=== PATIENT | male | born 1950 | race Caucasian/White ===

== ENCOUNTER 2016-09-23 21:22 | Emergency (ER) | payer MEDICARE, BC ==
[2016-09-23 21:41] VITALS: BP 118/73
--- NOTE | 2016-09-23 22:11 | EDM.PDOC ---
ED HPI GENERAL MEDICAL PROBLEM - General Chief Complaint: Lower Extremity Injury/Pain Stated Complaint: LEFT KNEE PAIN/KNEE SURGERY SUNDAY Time Seen by Provider: 09/23/16 22:00 Source of Information: Reports: Patient History Limitations: Reports: No Limitations - History of Present Illness INITIAL COMMENTS - FREE TEXT/NARRATIVE: 66 yo male who lives locally had a R knee replacement recently in [place]. He developed a water blister to the medial knee on the same knee he had surgery on. He called [place] and was told to come here for evaluation. No fever. Onset: Today Onset Date: 09/23/16 Duration: Hour(s): Location: Reports: Lower Extremity, Right Quality: Reports: Other (minimal itch.) Severity: Mild Improves with: Reports: None Worsens with: Reports: Other (? time) Context: Reports: Other (Recent R knee replacement.) Associated Symptoms: Reports: No Other Symptoms Treatments INTEGRATION TECHNICIAN: Reports: Other (see below) (none) Left Knee Pain Score (Numeric/FACES): 7 - Related Data Allergies Allergy/AdvReac Type Severity Reaction Status Date / Time erythromycin base Allergy Stomach Verified 08/20/14 08:07 [Erythromycin Base] Upset lisinopril AdvReac Cough Verified 08/20/14 08:07 Home Meds: Home Meds Aspirin [Valery Chewable] 325 mg PO DAILY 07/31/13 [History] Pravastatin Sodium [Pravastatin (Pravachol)] 40 mg PO DAILY 07/31/13 [History] Bisacodyl [Dulcolax] 5 mg PO BID PRN 09/23/16 [History] Metoprolol Succinate [Toprol XL 100mg] 100 mg PO DAILY 09/23/16 [History] Pantoprazole Sodium [Pantoprazole Sodium] 40 mg PO DAILY 09/23/16 [History] Polyethylene Glycol 3350 [MiraLAX] 17 gm PO DAILY 09/23/16 [History] Sucralfate [Sucralfate] 1 gm PO QID 09/23/16 [History] oxyCODONE HCl/Acetaminophen [oxyCODONE-Acetaminophen 5-325] 1 tab PO Q4H PRN [History] Past Medical History Cardiovascular History: Reports: High Cholesterol, Hypertension Musculoskeletal History: Reports: Other (See Below) Other Musculoskeletal History: bad knees Dermatologic History: Reports: Other (See Below) Other Dermatologic History: blister like formation near incision L knee - Past Surgical History Musculoskeletal Surgical History: Reports: Knee Replacement Other Musculoskeletal Surgeries/Procedures:: x 2. new L knee replacement Social & Family History - Tobacco Use Smoking Status *Q: Never Smoker Second Hand Smoke Exposure: No - Caffeine Use Caffeine Use: Reports: None - Alcohol Use Days Per Week of Alcohol Use: 0 - Recreational Drug Use Recreational Drug Use: No Review of Systems - Review of Systems Review Of Systems: See Below Constitutional: Reports: No Symptoms Musculoskeletal: Reports: No Symptoms Skin: Reports: Other (blister R knee) Neurological: Reports: No Symptoms ED EXAM, GENERAL - Physical Exam Exam: See Below Exam Limited By: No Limitations General Appearance: Alert, WD/WN, No Apparent Distress Extremities: Other (surgical scar R knee, clean, no sign of infection.) Neurological: Alert, Oriented, CN II-XII Intact Psychiatric: Normal Affect, Normal Mood Skin Exam: Warm, Dry, Intact, Normal Color, Other (There is a single large water blister to the medial ) Lymphatic: No Adenopathy Course - Vital Signs Last Recorded V/S: Last Vital Signs Temp 37.7 C 09/23/16 21:40 Pulse 90 09/23/16 21:40 Resp 18 09/23/16 21:40 BP 118/73 09/23/16 21:40 Pulse Ox 93 L 09/23/16 21:40 Departure - Departure Time of Disposition: 22:11 Disposition: Home, Self-Care 01 Condition: Good Clinical Impression: Vesicular eruption of skin - Discharge Information Referrals: Flakito Javed MD [Primary Care Provider] - Forms: ED Department Discharge Additional Instructions: Once blister pops you will need to keep that area clean to prevent infection. Recheck for fever. Keep your follow up appt as scheduled.
== END 2016-09-23 22:13 | disposition home or self-care (01) ==
LOC: JP.ED 21:22
DX: R23.8 Other skin changes (principal); Z79.899 Other long term (current) drug therapy; Z88.8 Allergy status to other drugs, medicaments and biological substances; Z79.82 Long term (current) use of aspirin; E78.00 Pure hypercholesterolemia, unspecified; I10 Essential (primary) hypertension; Z96.652 Presence of left artificial knee joint
CPT/HCPCS: 99282; 99283

== ENCOUNTER 2017-04-06 07:51 | Day surgery (SDC) | payer MEDICARE, BC ==
[2017-04-06] MEDS ORDERED: Lactated Ringers 1,000 ML IV SCH (08:30)
[2017-04-06] MEDS ORDERED: Propofol 200 MG/20 ML SDV ONE (09:18)
[2017-04-06] MEDS ORDERED: fentaNYL 100 MCG/2 ML SDV ONE (09:18)
[2017-04-06] MEDS ORDERED: Midazolam 1 MG/ML 2 ML SDV ONE (09:18)
[2017-04-06 11:02] VITALS: BP 136/80
--- NOTE | 2017-04-06 15:21 | OR ---
DATE OF PROCEDURE: 04/06/2017 PREOPERATIVE DIAGNOSIS: Colon cancer screening. POSTOPERATIVE DIAGNOSIS: Diverticulosis. PROCEDURE: Colonoscopy to the cecum. ANESTHESIA: IV anesthesia with monitored anesthesia care. INDICATION: This 66-year-old white male is referred for a colonoscopy for colon cancer screening. He says his last colonoscopic exam was done 11 years ago. I counseled him for the procedure including risks and alternatives, and he gave his informed consent to proceed. DESCRIPTION OF PROCEDURE: The patient was placed in the left lateral decubitus position. IV anesthesia was administered by the Anesthesia Service. Time-out was held. A rectal exam was performed, which was unremarkable. The flexible video Olympus colonoscope was introduced through his anus, up his rectum, and out his colon all the way to the cecum. En route, we saw a few scattered left-sided diverticula. There was no bleeding or inflammation associated with them. Once the cecum was reached, the scope was slowly withdrawn, examining the mucosa throughout. No additional mucosal abnormalities were noted. The scope was retroflexed in the rectum with the distal rectum appearing unremarkable. The scope was straightened and removed. He tolerated the procedure well. Omar Simmons MD /[id number] AKASH
== END 2017-04-06 10:50 | disposition home or self-care (01) ==
LOC: JP.SDS 07:51
PROVIDERS: ATTEND Surgery
DX: Z12.11 Encounter for screening for malignant neoplasm of colon (principal); K57.30 Diverticulosis of large intestine without perforation or abscess without bleeding
CPT/HCPCS: G0121; J2250; J2704; J3010; J7120

== ENCOUNTER 2017-07-24 15:02 | Emergency (ER) | payer MEDICARE, BC ==
[2017-07-24] MEDS ORDERED: Ibuprofen 600 MG Tab PO ONE (15:42)
[2017-07-24] MEDS ORDERED: Lactated Ringers 1,000 ML IV SCH (15:45)
--- NOTE | 2017-07-24 15:47 | EDM.PDOC ---
ED HPI GENERAL MEDICAL PROBLEM - General Chief Complaint: Fever Stated Complaint: COUGH / FEVER Time Seen by Provider: 07/24/17 15:37 Source of Information: Reports: Patient, Family, RN Notes Reviewed History Limitations: Reports: No Limitations - History of Present Illness INITIAL COMMENTS - FREE TEXT/NARRATIVE: 66-year-old gentleman presents to the emergency department day complaint of sore throat and fever, states is been ill for about 2 weeks has been evaluated by his primary care did do trial of azithromycin, states after completing the antibiotics he felt good for a day or 2 and then progressively has gotten worse with fever and sore throat he's also developed a cough and feels tightness in his chest when he coughs. Middle Chest Pain Score (Numeric/FACES): 9 - Related Data Allergies Allergy/AdvReac Type Severity Reaction Status Date / Time erythromycin base Allergy Stomach Verified 07/24/17 15:24 [Erythromycin Base] Upset lisinopril AdvReac Cough Verified 07/24/17 15:24 reglan Allergy Hallucinati Uncoded 07/24/17 15:24 ons Home Meds: Home Meds Aspirin [Valery Chewable] 81 mg PO DAILY 07/31/13 [History] Pravastatin Sodium [Pravastatin (Pravachol)] 40 mg PO DAILY 07/31/13 [History] Metoprolol Succinate [Toprol XL 100mg] 100 mg PO DAILY 09/23/16 [History] Pantoprazole Sodium 40 mg PO BID 09/23/16 [History] Sucralfate 1 gm PO QID 09/23/16 [History] Past Medical History HEENT History: Reports: Impaired Vision Cardiovascular History: Reports: High Cholesterol, Hypertension Gastrointestinal History: Reports: Colon Polyp, GERD Genitourinary History: Reports: BPH Musculoskeletal History: Reports: Back Pain, Chronic, Fracture, Osteoarthritis Other Musculoskeletal History: bad knees Endocrine/Metabolic History: Reports: Obesity/BMI 30+ Dermatologic History: Reports: Other (See Below) Other Dermatologic History: blister like formation near incision L knee - Infectious Disease History Infectious Disease History: Reports: Chicken Pox - Past Surgical History HEENT Surgical History: Reports: Adenoidectomy, Tonsillectomy Cardiovascular Surgical History: Reports: Other (See Below) Other Cardiovascular Surgeries/Procedures: Angiogram GI Surgical History: Reports: Cholecystectomy, Colonoscopy, EGD, Hernia, Inguinal Male Surgical History: Reports: TURP-Transurethral Resection of Prostate Endocrine Surgical History: Reports: None Musculoskeletal Surgical History: Reports: Arthroscopic Knee, Knee Replacement, Shoulder Surgery Other Musculoskeletal Surgeries/Procedures:: x 2. new L knee replacement Dermatological Surgical History: Reports: None Social & Family History - Tobacco Use Smoking Status *Q: Unknown Ever Smoked Second Hand Smoke Exposure: No - Caffeine Use Caffeine Use: Reports: Coffee - Alcohol Use Days Per Week of Alcohol Use: 0 - Recreational Drug Use Recreational Drug Use: No ED ROS ENT - Review of Systems Review Of Systems: See Below Constitutional: Reports: Fever, Chills HEENT: Reports: Throat Pain, Throat Swelling Respiratory: Reports: Cough. Denies: Shortness of Breath, Wheezing, Sputum Cardiovascular: Reports: Chest Pain GI/Abdominal: Reports: No Symptoms : Reports: No Symptoms Musculoskeletal: Reports: No Symptoms Skin: Reports: No Symptoms Neurological: Reports: No Symptoms Psychiatric: Reports: No Symptoms ED EXAM, ENT - Physical Exam Exam: See Below Text/Narrative:: General: Male, ill-appearing but not in any distress, alert and oriented x3 HEENT: head is atraumatic normocephalic, eyes pupils equal round reactive to light, sclera clear no conjunctivitis appreciated. Ears tympanic membranes clear and german landmarks and light reflex are present bilaterally canals are clear. Nose no septal deviation, nares are clear, no blood present. Mouth mucosa is moist and pink no erythema or exudate noted in soft palate, tongue is midline uvula is midline, dentition is intact. Neck: Supple no thyromegaly no tracheal deviation. Nodes: Cervical nodes subclavicular nodes nontender no palpable lymphadenopathy noted. Lungs: Rhonchi appreciated left lower lung field otherwise good aeration CV: Regular rate and rhythm S1 and S2 appreciated no murmurs rubs or gallops noted. Abdomen: Soft, nontender, no palpable masses or organomegaly appreciated, no distention no guarding bowel sounds are present, . Neuro: Cranial nerves II through XII grossly intact Skin: Warm and dry, intact Extremities: No lower extremity edema appreciated, . Course - Vital Signs Last Recorded V/S: Last Vital Signs Temp 101.9 F H 07/24/17 16:00 Pulse 75 07/24/17 17:35 Resp 16 07/24/17 17:35 BP 130/71 07/24/17 17:35 Pulse Ox 92 L 07/24/17 17:35 - Orders/Labs/Meds Orders: Active Orders 24 hr Category Date Time Status Vital Signs [RC] Q1H Care 07/24/17 15:42 Active Chest 2V [CR] Urgent Exams 07/24/17 17:41 Taken CULTURE BLOOD [BC] Urgent Lab 07/24/17 15:52 Received CULTURE BLOOD [BC] Urgent Lab 07/24/17 16:00 Received INFLUENZA A+B AG SCREEN [RM] Stat Lab 07/24/17 17:10 Ordered UA W/MICROSCOPIC [URIN] Urgent Lab 07/24/17 17:16 Ordered Lactated Ringers [Ringers, Lactated] 1,000 ml Med 07/24/17 15:45 Active IV ASDIRECTED Blood Culture x2 Reflex Set [OM.PC] Urgent Oth 07/24/17 15:42 Ordered Medication Orders Lactated Ringer's (Ringers, Lactated) 1,000 mls @ 999 mls/hr IV ASDIRECTED STEFFEN Last Admin: 07/24/17 16:00 Dose: 999 mls/hr Labs: Laboratory Tests 07/24/17 07/24/17 07/24/17 Range/Units 16:00 16:00 16:00 WBC 7.5 (4.5-11.0) K/uL RBC 5.18 (4.30-5.90) M/uL Hgb 15.5 H (12.0-15.0) g/dL Hct 44.3 (40.0-54.0) % MCV 86 (80-98) fL MCH 30 (27-31) pg MCHC 35 (32-36) % Plt Count 153 (150-400) K/uL Neut % (Auto) 83 H (36-66) % Lymph % (Auto) 6 L (24-44) % Geary % (Auto) 11 H (2-6) % Eos % (Auto) 1 L (2-4) % Baso % (Auto) 0 (0-1) % Sodium 142 (140-148) mmol/L Potassium 3.9 (3.6-5.2) mmol/L Chloride 102 (100-108) mmol/L Carbon Dioxide 32 (21-32) mmol/L Anion Gap 8.5 (5.0-14.0) mmol/L BUN 12 (7-18) mg/dL Creatinine 1.0 (0.8-1.3) mg/dL Est Cr Clr Drug Dosing 83.23 mL/min Estimated GFR (MDRD) > 60 (>60) Glucose 92 (74-106) mg/dL Lactic Acid 1.2 (0.4-2.0) mmol/L Calcium 8.3 L (8.5-10.1) mg/dL Total Bilirubin 0.7 (0.2-1.0) mg/dL AST 23 (15-37) U/L ALT 37 (12-78) U/L Alkaline Phosphatase 97 (46-116) U/L Troponin I (0.000-0.056) ng/mL C-Reactive Protein 0.45 H (0.0-0.3) mg/dL Total Protein 6.9 (6.4-8.2) g/dL Albumin 3.9 (3.4-5.0) g/dL Globulin 3.0 (2.3-3.5) g/dL Albumin/Globulin Ratio 1.3 (1.2-2.2) Urine Color Urine Appearance Urine pH (4.5-8.0) Ur Specific [place] (1.008-1.030) Urine Protein (NEGATIVE) mg/dL Urine Glucose (UA) (NEGATIVE) mg/dL Urine Ketones (NEGATIVE) mg/dL Urine Occult Blood (NEGATIVE) Urine Nitrite (NEGAITVE) Urine Bilirubin (NEGATIVE) Urine Urobilinogen (NORMAL) mg/dL Ur Leukocyte Esterase (NEGATIVE) Urine RBC (0-5) Urine WBC (0-5) Ur Epithelial Cells Amorphous Sediment Urine Bacteria Urine Mucus 07/24/17 07/24/17 Range/Units 16:00 17:16 WBC (4.5-11.0) K/uL RBC (4.30-5.90) M/uL Hgb (12.0-15.0) g/dL Hct (40.0-54.0) % MCV (80-98) fL MCH (27-31) pg MCHC (32-36) % Plt Count (150-400) K/uL Neut % (Auto) (36-66) % Lymph % (Auto) (24-44) % [place]ary % (Auto) (2-6) % Eos % (Auto) (2-4) % Baso % (Auto) (0-1) % Sodium (140-148) mmol/L Potassium (3.6-5.2) mmol/L Chloride (100-108) mmol/L Carbon Dioxide (21-32) mmol/L Anion Gap (5.0-14.0) mmol/L BUN (7-18) mg/dL Creatinine (0.8-1.3) mg/dL Est Cr Clr Drug Dosing mL/min Estimated GFR (MDRD) (>60) Glucose (74-106) mg/dL Lactic Acid (0.4-2.0) mmol/L Calcium (8.5-10.1) mg/dL Total Bilirubin (0.2-1.0) mg/dL AST (15-37) U/L ALT (12-78) U/L Alkaline Phosphatase (46-116) U/L Troponin I < 0.017 (0.000-0.056) ng/mL C-Reactive Protein (0.0-0.3) mg/dL Total Protein (6.4-8.2) g/dL Albumin (3.4-5.0) g/dL Globulin (2.3-3.5) g/dL Albumin/Globulin Ratio (1.2-2.2) Urine Color Yellow Urine Appearance Clear Urine pH 8.0 (4.5-8.0) Ur Specific [place] 1.010 (1.008-1.030) Urine Protein Negative (NEGATIVE) mg/dL Urine Glucose (UA) Normal (NEGATIVE) mg/dL Urine Ketones Negative (NEGATIVE) mg/dL Urine Occult Blood Negative (NEGATIVE) Urine Nitrite Negative (NEGAITVE) Urine Bilirubin Negative (NEGATIVE) Urine Urobilinogen Normal (NORMAL) mg/dL Ur Leukocyte Esterase Negative (NEGATIVE) Urine RBC Not seen (0-5) Urine WBC Not seen (0-5) Ur Epithelial Cells Not seen Amorphous Sediment Rare Urine Bacteria Not seen Urine Mucus Not seen Meds: Medications Generic Name Dose Route Start Last Admin Trade Name Freq PRN Reason Stop Dose Admin Lactated Ringer's 1,000 mls @ 999 mls/hr 07/24/17 15:45 07/24/17 16:00 Ringers, Lactated IV 999 mls/hr ASDIRECTED STEFFEN Administration Discontinued Medications Generic Name Dose Route Start Last Admin Trade Name Freq PRN Reason Stop Dose Admin Ibuprofen 600 mg 07/24/17 15:42 07/24/17 16:00 Motrin PO 07/24/17 15:43 600 mg ONETIME ONE Administration Departure - Departure Time of Disposition: 18:15 Disposition: Home, Self-Care 01 Condition: Good Clinical Impression: Cough - Discharge Information Referrals: Flakito Javed MD [Primary Care Provider] - Forms: ED Department Discharge Additional Instructions: Use the Robitussin-AC as needed help suppress the cough, continue to use Tylenol and Motrin to help suppress the fever, Please followup with your primary care provider in 3-5 days if not better, please call return to the emergency department with worsening of symptoms. - My Orders Last 24 Hours: My Active Orders 07/24/17 15:42 Vital Signs [RC] Q1H Blood Culture x2 Reflex Set [OM.PC] Urgent 07/24/17 15:45 Lactated Ringers [Ringers, Lactated] 1,000 ml IV ASDIRECTED 07/24/17 15:52 CULTURE BLOOD [BC] Urgent 07/24/17 16:00 CULTURE BLOOD [BC] Urgent 07/24/17 17:10 INFLUENZA A+B AG SCREEN [RM] Stat 07/24/17 17:16 UA W/MICROSCOPIC [URIN] Urgent 07/24/17 17:41 Chest 2V [CR] Urgent - Assessment/Plan Last 24 Hours: My Active Orders 07/24/17 15:42 Vital Signs [RC] Q1H Blood Culture x2 Reflex Set [OM.PC] Urgent 07/24/17 15:45 Lactated Ringers [Ringers, Lactated] 1,000 ml IV ASDIRECTED 07/24/17 15:52 CULTURE BLOOD [BC] Urgent 07/24/17 16:00 CULTURE BLOOD [BC] Urgent 07/24/17 17:10 INFLUENZA A+B AG SCREEN [RM] Stat 07/24/17 17:16 UA W/MICROSCOPIC [URIN] Urgent 07/24/17 17:41 Chest 2V [CR] Urgent Plan: Assessment Acuity = acute Site and laterality = fever cough Etiology = probable viral syndrome Manifestations = none Location of injury = Home Lab values = CBC, CMP, lactic acid, troponin all within normal limits, influenza A and B- urinalysis unremarkable chest x-ray I did review films myself I cannot appreciate any acute process, the official read from radiology is pending Plan I did review lab work chest x-ray results with him he recently started doxycycline which may be contributing to his sore throat however I cannot explain all his symptoms due to side effect of medication and treat him symptomatically with Robitussin-AC as needed for cough he will follow-up with his primary care in 3-5 days if no improvement This note was dictated using [employer] voice recognition software please call with any questions on syntax or rupal.
[2017-07-24 18:30] VITALS: BP 143/88
--- NOTE | 2017-07-25 09:09 | CR ---
Chest 2V HISTORY: Cough. COMPARISON: 08/07/2014. FINDINGS: Cardiac size and pulmonary vessels normal. There are no infiltrates or effusions. No pneumo thorax. Degenerative change thoracic spine. IMPRESSION: No acute pulmonary disease.
== END 2017-07-24 18:31 | disposition home or self-care (01) ==
LOC: JP.ED 15:02
DX: R05 Cough (principal); I10 Essential (primary) hypertension; E66.9 Obesity, unspecified; Z88.8 Allergy status to other drugs, medicaments and biological substances; Z88.1 Allergy status to other antibiotic agents; Z79.899 Other long term (current) drug therapy; Z79.82 Long term (current) use of aspirin
CPT/HCPCS: 36415; 71046; 80053; 81001; 83605; 84484; 85025; 86140; 87040; 87804; 96360; 99284; A9270; J7120

== ENCOUNTER 2017-07-26 19:15 | Emergency (ER) | payer MEDICARE, BC ==
[2017-07-26 19:29] VITALS: BP 151/85
--- NOTE | 2017-07-26 20:30 | EDM.PDOC ---
ED HPI GENERAL MEDICAL PROBLEM - General Chief Complaint: Fever Stated Complaint: TEMP 102 Time Seen by Provider: 07/26/17 20:05 Source of Information: Reports: Patient History Limitations: Reports: No Limitations - History of Present Illness INITIAL COMMENTS - FREE TEXT/NARRATIVE: 66-year-old male who was had a cough and cold for the past week which she just can't shake. He now has nasal congestion, a very scratchy sore throat. His cough is persistent, and today he spiked a temperature to 102 so thought he should be checked again. This is his third visit, he has been started on Zithromax and had a normal chest x-ray. He's also been checked for influenza. 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: Acetaminophen Cheeks Pain Score (Numeric/FACES): 4 - Related Data Allergies Allergy/AdvReac Type Severity Reaction Status Date / Time erythromycin base Allergy Stomach Verified 07/26/17 19:44 [Erythromycin Base] Upset lisinopril AdvReac Cough Verified 07/26/17 19:44 reglan Allergy Hallucinati Uncoded 07/26/17 19:44 ons Home Meds: Home Meds Aspirin [Valery Chewable] 81 mg PO DAILY 07/31/13 [History] Pravastatin Sodium [Pravastatin (Pravachol)] 40 mg PO DAILY 07/31/13 [History] Metoprolol Succinate [Toprol XL 100mg] 100 mg PO DAILY 09/23/16 [History] Pantoprazole Sodium 40 mg PO BID 09/23/16 [History] Sucralfate 1 gm PO QID 09/23/16 [History] Past Medical History HEENT History: Reports: Impaired Vision Cardiovascular History: Reports: High Cholesterol, Hypertension Gastrointestinal History: Reports: Colon Polyp, GERD Genitourinary History: Reports: BPH Musculoskeletal History: Reports: Back Pain, Chronic, Fracture, Osteoarthritis Other Musculoskeletal History: bad knees Endocrine/Metabolic History: Reports: Obesity/BMI 30+ Dermatologic History: Reports: Other (See Below) Other Dermatologic History: blister like formation near incision L knee - Infectious Disease History Infectious Disease History: Reports: Chicken Pox - Past Surgical History HEENT Surgical History: Reports: Adenoidectomy, Tonsillectomy Cardiovascular Surgical History: Reports: Other (See Below) Other Cardiovascular Surgeries/Procedures: Angiogram GI Surgical History: Reports: Cholecystectomy, Colonoscopy, EGD, Hernia, Inguinal Male Surgical History: Reports: TURP-Transurethral Resection of Prostate Endocrine Surgical History: Reports: None Musculoskeletal Surgical History: Reports: Arthroscopic Knee, Knee Replacement, Shoulder Surgery Other Musculoskeletal Surgeries/Procedures:: x 2. new L knee replacement Dermatological Surgical History: Reports: None Social & Family History - Tobacco Use Smoking Status *Q: Never Smoker Second Hand Smoke Exposure: No - Caffeine Use Caffeine Use: Reports: Coffee - Alcohol Use Days Per Week of Alcohol Use: 0 - Recreational Drug Use Recreational Drug Use: No ED ROS GENERAL - Review of Systems Review Of Systems: See Below Constitutional: Reports: Fever, Chills, Malaise HEENT: Reports: Sinus Problem (Congestion), Throat Pain. Denies: Ear Pain Respiratory: Reports: Shortness of Breath, Cough. Denies: Sputum Cardiovascular: Reports: Chest Pain (Have some tenderness in his chest wall from the coughing) GI/Abdominal: Reports: No Symptoms Skin: Denies: Rash Neurological: Denies: Headache ED EXAM, GENERAL - Physical Exam Exam: See Below Exam Limited By: No Limitations General Appearance: Alert, Moderate Distress Nose: Clear Rhinorrhea Throat/Mouth: Normal Inspection (Tonsils are absent, no significant inflammation ) Neck: Normal Inspection. No: Lymphadenopathy (R), Lymphadenopathy (L) Respiratory/Chest: No Respiratory Distress, Wheezing (Some scattered expiratory wheezes, especially with coughing) Extremities: Normal Inspection Neurological: Alert, Oriented Skin Exam: Warm, Dry Course - Vital Signs Last Recorded V/S: Last Vital Signs Temp 101 F H 07/26/17 19:41 Pulse 88 07/26/17 19:41 Resp 16 07/26/17 19:41 BP 151/85 H 07/26/17 19:41 Pulse Ox 93 L 07/26/17 19:41 - Orders/Labs/Meds Orders: Active Orders 24 hr Category Date Time Status CULTURE STREP A CONFIRMATION [RM] Routine Lab 07/26/17 20:16 Results STREP SCRN A RAPID W CULT CONF [RM] Routine Lab 07/26/17 20:16 Ordered - Re-Assessments/Exams Free Text/Narrative Re-Assessment/Exam: 07/26/17 20:30 A rapid strep was obtained. I explained to the patient that this is very likely a viral syndrome which is white respond antibiotics and he is still getting intermittent fevers. 07/26/17 20:56 Strep was negative. Patient is going to continue his antibiotics but will be placed on 60 mg of prednisone daily for 5 consecutive days, along with some benzonatate for cough suppression. He'll return if worsening such as increasing shortness of breath. Departure - Departure Time of Disposition: 21:05 Disposition: Home, Self-Care 01 Condition: Good Clinical Impression: Acute bronchitis, viral - Discharge Information Instructions: Viral Respiratory Infection, [id number] Referrals: Flakito Javed MD [Primary Care Provider] - Forms: ED Department Discharge Care Plan Goals: Take 6 pills of prednisone with food for 5 consecutive days. Continue your other medications and also add benzonatate for cough suppression as prescribed. Return anytime if worsening such as increasing shortness of breath. Increase activity as tolerated. - My Orders Last 24 Hours: My Active Orders 07/26/17 20:16 CULTURE STREP A CONFIRMATION [RM] Routine STREP SCRN A RAPID W CULT CONF [] Routine - Assessment/Plan Last 24 Hours: My Active Orders 07/26/17 20:16 CULTURE STREP A CONFIRMATION [RM] Routine STREP SCRN A RAPID W CULT CONF [] Routine
== END 2017-07-26 21:07 | disposition home or self-care (01) ==
LOC: JP.ED 19:15
DX: J20.9 Acute bronchitis, unspecified (principal); E78.00 Pure hypercholesterolemia, unspecified; I10 Essential (primary) hypertension; K21.9 Gastro-esophageal reflux disease without esophagitis; Z88.1 Allergy status to other antibiotic agents; Z88.8 Allergy status to other drugs, medicaments and biological substances; Z79.82 Long term (current) use of aspirin; Z79.899 Other long term (current) drug therapy
CPT/HCPCS: 87081; 87430; 99284

== ENCOUNTER 2018-10-20 10:17 | Emergency (ER) | payer OTHER, MEDICARE, BC ==
[2018-10-20 10:53] VITALS: BP 144/87; PULSE 95
--- NOTE | 2018-10-20 11:32 | EDM.PDOC ---
ED HPI GENERAL MEDICAL PROBLEM - General Stated Complaint: COLD AND BURN ON LEFT ARM Time Seen by Provider: 10/20/18 10:59 Source of Information: Reports: Patient History Limitations: Reports: No Limitations - History of Present Illness INITIAL COMMENTS - FREE TEXT/NARRATIVE: 68 yo male presents with with 7 day hx of sore throat and nasal congestion seen in clinic last week and completed strep test which was negative. increase in face pressure yesterday with fever 101.6 last night. pt also has burn to left forearm from exhaust of his truck that occurred earlier this week. The burn was red and swollen yesterday but does look better today per pt. - Related Data Allergies Allergy/AdvReac Type Severity Reaction Status Date / Time erythromycin base Allergy Stomach Verified 07/26/17 19:44 [Erythromycin Base] Upset lisinopril AdvReac Cough Verified 07/26/17 19:44 reglan Allergy Hallucinati Uncoded 07/26/17 19:44 ons Home Meds: Home Meds Aspirin [Valery Chewable] 81 mg PO DAILY 07/31/13 [History] Pravastatin Sodium [Pravastatin (Pravachol)] 40 mg PO DAILY 07/31/13 [History] Metoprolol Succinate [Toprol XL 100mg] 100 mg PO DAILY 09/23/16 [History] Pantoprazole Sodium 40 mg PO BID 09/23/16 [History] Sucralfate 1 gm PO QID 09/23/16 [History] Past Medical History HEENT History: Reports: Impaired Vision Cardiovascular History: Reports: High Cholesterol, Hypertension Gastrointestinal History: Reports: Colon Polyp, GERD Genitourinary History: Reports: BPH Musculoskeletal History: Reports: Back Pain, Chronic, Fracture, Osteoarthritis Other Musculoskeletal History: bad knees Endocrine/Metabolic History: Reports: Obesity/BMI 30+ Dermatologic History: Reports: Other (See Below) Other Dermatologic History: blister like formation near incision L knee - Infectious Disease History Infectious Disease History: Reports: Chicken Pox - Past Surgical History HEENT Surgical History: Reports: Adenoidectomy, Tonsillectomy Cardiovascular Surgical History: Reports: Other (See Below) Other Cardiovascular Surgeries/Procedures: Angiogram GI Surgical History: Reports: Cholecystectomy, Colonoscopy, EGD, Hernia, Inguinal Male Surgical History: Reports: TURP-Transurethral Resection of Prostate Endocrine Surgical History: Reports: None Musculoskeletal Surgical History: Reports: Arthroscopic Knee, Knee Replacement, Shoulder Surgery Other Musculoskeletal Surgeries/Procedures:: x 2. new L knee replacement Dermatological Surgical History: Reports: None Social & Family History - Caffeine Use Caffeine Use: Reports: Coffee ED ROS ENT - Review of Systems Review Of Systems: See Below Constitutional: Reports: Fever, Chills, Fatigue HEENT: Reports: Sinus Problem, Throat Pain Respiratory: Denies: Shortness of Breath, Wheezing Cardiovascular: Denies: Chest Pain ED EXAM, ENT - Physical Exam Exam: See Below Exam Limited By: No Limitations General Appearance: Alert, WD/WN, No Apparent Distress Ears: Normal External Exam, Normal Canal, Hearing Grossly Normal, Normal TMs Nose: No Blood, Nasal Discharge, Injected Turbinates Mouth/Throat: Normal Gums, Normal Lips, Normal Oropharynx, Normal Teeth, Pharyngeal Erythema, Tonsillar Erythema. No: Tongue Swelling, Tonsillar Exudates Head: Atraumatic, Normocephalic Neck: Supple, Non-Tender, Full Range of Motion, Lymphadenopathy (R), Lymphadenopathy (L) Respiratory/Chest: No Respiratory Distress, Lungs Clear, Normal Breath Sounds, No Accessory Muscle Use, Chest Non-Tender. No: Crackles, Rhonchi, Wheezing Cardiovascular: Regular Rate, Rhythm, No Murmur GI/Abdominal: Soft, Non-Tender Neurological: Alert, Oriented Psychiatric: Normal Affect, Normal Mood Skin: Warm, Dry, Intact, No Rash Course - Vital Signs Last Recorded V/S: Last Vital Signs Temp 36.5 C 10/20/18 10:52 Pulse 95 10/20/18 10:52 Resp 17 10/20/18 10:52 BP 144/87 H 10/20/18 10:52 Pulse Ox 95 10/20/18 10:52 Departure - Departure Time of Disposition: 11:32 Disposition: Home, Self-Care 01 Condition: Good Clinical Impression: Sinusitis, acute Qualifiers: Sinusitis location: unspecified location Recurrence: non-recurrent Qualified Code(s): J01.90 - Acute sinusitis, unspecified Partial thickness burn of left upper extremity Qualifiers: Encounter type: initial encounter Upper extremity location: forearm Qualified Code(s): T22.212A - Burn of second degree of left forearm, initial encounter - Discharge Information *PRESCRIPTION DRUG MONITORING PROGRAM REVIEWED*: Not Applicable *COPY OF PRESCRIPTION DRUG MONITORING REPORT IN PATIENT DEB: Not Applicable Instructions: How to Perform a Sinus Rinse, [id number] Referrals: Flakito Javed MD [Primary Care Provider] - Additional Instructions: Augmentin 500 twice daily for 5 days increase fluid intake with goal of 1.5 L per day naproxen or Ibuprofen for fever Control and pain wash burn daily with warm soapy water and pat dry may use topical antibiotic on burn
== END 2018-10-20 11:58 | disposition home or self-care (01) ==
LOC: JP.ED 10:17
DX: T22.00XA Burn of unspecified degree of shoulder and upper limb, except wrist and hand, unspecified site, initial encounter (principal); J01.90 Acute sinusitis, unspecified; I10 Essential (primary) hypertension; E78.00 Pure hypercholesterolemia, unspecified; K21.9 Gastro-esophageal reflux disease without esophagitis; Z79.82 Long term (current) use of aspirin; Z79.899 Other long term (current) drug therapy; Z88.1 Allergy status to other antibiotic agents; Z88.8 Allergy status to other drugs, medicaments and biological substances
CPT/HCPCS: 99282; 99283

== ENCOUNTER 2019-04-19 18:54 | Emergency (ER) | payer MEDICARE, BC ==
--- NOTE | 2019-04-19 19:28 | EDM.PDOC ---
ED HPI GENERAL MEDICAL PROBLEM - General Chief Complaint: Chest Pain Stated Complaint: left arm pain Time Seen by Provider: 04/19/19 19:45 Source of Information: Reports: Patient, Old Records, RN History Limitations: Reports: No Limitations - History of Present Illness INITIAL COMMENTS - FREE TEXT/NARRATIVE: 68 yo male presents with L posterior shoulder pain that radiates to his elbow. Has had this pain waxing and waning for several weeks. Is scheduled to see Dr. Javed about this in 2 days, but because the pain is worse than usual today his encouraged him to come to make sure this was not his heart. Took acetaminophen about 5 hrs ago for it. Denies injury. Onset: Unknown/Unsure Duration: Week(s):, Getting Worse Location: Reports: Other (L posterior shoulder with radiation to the L elbow) Quality: Reports: Ache Severity: Moderate Improves with: Reports: None Worsens with: Reports: Other (? time and raising arm.) Context: Reports: Other (see HPI) Associated Symptoms: Reports: No Other Symptoms Treatments G[employer]ER: Reports: Acetaminophen left upper arm Pain Score (Numeric/FACES): 5 - Related Data Allergies Allergy/AdvReac Type Severity Reaction Status Date / Time erythromycin base Allergy Stomach Verified 04/19/19 19:15 [Erythromycin Base] Upset lisinopril AdvReac Cough Verified 04/19/19 19:15 reglan Allergy Hallucinati Uncoded 04/19/19 19:15 ons Home Meds: Home Meds Aspirin [Valery Chewable] 81 mg PO DAILY 07/31/13 [History] Pravastatin Sodium [Pravastatin (Pravachol)] 40 mg PO DAILY 07/31/13 [History] Metoprolol Succinate [Toprol XL 100mg] 100 mg PO DAILY 09/23/16 [History] Pantoprazole Sodium 40 mg PO BID 09/23/16 [History] Sucralfate 1 gm PO QID 09/23/16 [History] Asfaxanthin 4 mg PO DAILY 04/19/19 [History] Past Medical History HEENT History: Reports: Impaired Vision Cardiovascular History: Reports: High Cholesterol, Hypertension Gastrointestinal History: Reports: Colon Polyp, GERD Genitourinary History: Reports: BPH Musculoskeletal History: Reports: Back Pain, Chronic, Fracture, Osteoarthritis Other Musculoskeletal History: bad knees Endocrine/Metabolic History: Reports: Obesity/BMI 30+ Dermatologic History: Reports: Other (See Below) Other Dermatologic History: blister like formation near incision L knee - Infectious Disease History Infectious Disease History: Reports: Chicken Pox - Past Surgical History HEENT Surgical History: Reports: Adenoidectomy, Tonsillectomy Cardiovascular Surgical History: Reports: Other (See Below) Other Cardiovascular Surgeries/Procedures: Angiogram GI Surgical History: Reports: Cholecystectomy, Colonoscopy, EGD, Hernia, Inguinal Male Surgical History: Reports: TURP-Transurethral Resection of Prostate Endocrine Surgical History: Reports: None Musculoskeletal Surgical History: Reports: Arthroscopic Knee, Knee Replacement, Shoulder Surgery Other Musculoskeletal Surgeries/Procedures:: x 2. new L knee replacement Dermatological Surgical History: Reports: None Social & Family History - Tobacco Use Smoking Status *Q: Never Smoker - Caffeine Use Caffeine Use: Reports: Coffee, Soda - Recreational Drug Use Recreational Drug Use: No ED ROS GENERAL - Review of Systems Review Of Systems: See Below Constitutional: Reports: No Symptoms HEENT: Reports: No Symptoms Respiratory: Reports: No Symptoms Cardiovascular: Reports: No Symptoms GI/Abdominal: Reports: No Symptoms : Reports: No Symptoms Musculoskeletal: Reports: Shoulder Pain (L posterior), Arm Pain (pain radiates down the L arm to the elbow), Muscle Pain (L post shoulder) Skin: Reports: No Symptoms Neurological: Reports: No Symptoms ED EXAM, GENERAL - Physical Exam Exam: See Below Exam Limited By: No Limitations General Appearance: Alert, WD/WN, No Apparent Distress Eye Exam: Bilateral Eye: Normal Inspection Ears: Normal External Exam, Normal Canal, Hearing Grossly Normal Ear Exam: Bilateral Ear: Auricle Normal, Canal Normal Nose: Normal Inspection, No Blood Throat/Mouth: Normal Inspection, Normal Lips, Normal Oropharynx, Normal Voice, No Airway Compromise Head: Atraumatic, Normocephalic Neck: Normal Inspection Respiratory/Chest: No Respiratory Distress, Lungs Clear, Normal Breath Sounds, No Accessory Muscle Use, Chest Non-Tender Cardiovascular: Regular Rate, Rhythm, No Edema GI/Abdominal: Soft, Non-Tender Extremities: Normal Inspection, Normal Range of Motion (raises L arm with some difficulty, increases his shoulder pain. ), No Pedal Edema. No: Non-Tender ( posterior deltoid region is tender with palpation. ) Neurological: Alert, Oriented, CN II-XII Intact, Normal Cognition, No Motor/ Sensory Deficits Psychiatric: Normal Affect, Normal Mood Skin Exam: Warm, Dry, Intact, Normal Color, No Rash EKG INTERPRETATION EKG Date: 04/19/19 Time: 19:00 Rhythm: NSR Rate (Beats/Min): 62 [place]: Normal P-Wave: Present QRS: Normal ST-T: Normal QT: Normal Comparison: No Change Course - Vital Signs Text/Narrative:: Improved after Toradol. Last Recorded V/S: Last Vital Signs Temp 36.7 C 04/19/19 19:20 Pulse 60 04/19/19 20:16 Resp 11 L 04/19/19 20:16 BP 151/81 H 04/19/19 20:16 Pulse Ox 96 04/19/19 20:16 - Orders/Labs/Meds Orders: Active Orders 24 hr Category Date Time Status EKG Documentation Completion [RC] ASDIRECTED Care 04/19/19 20:14 Active EKG 12 Lead [EK] Routine Ther 04/19/19 20:14 Ordered Meds: Medications Discontinued Medications Generic Name Dose Route Start Last Admin Trade Name Oumou PRN Reason Stop Dose Admin Ketorolac Tromethamine 60 mg 04/19/19 19:56 04/19/19 20:07 Toradol IM 04/19/19 19:57 60 mg ONETIME ONE Administration Departure - Departure Time of Disposition: 20:33 Disposition: Home, Self-Care 01 Condition: Good Clinical Impression: Rotator cuff arthropathy Qualifiers: Laterality: left Qualified Code(s): M12.812 - Other specific arthropathies, not elsewhere classified, left shoulder Referrals: Flakito Javed MD [Primary Care Provider] - Forms: ED Department Discharge Additional Instructions: Avoid raising your left arm over your head. Take acetaminophen and if needed ibuprofen for pain relief. Avoid salt or salty foods to help reduce your BP. Keep your scheduled appt with Dr. Javed. Sepsis Event Note - Evaluation Sepsis Screening Result: No Definite Risk - Focused Exam Vital Signs: Vital Signs Temp Pulse Resp BP Pulse Ox 04/19/19 20:16 60 11 L 151/81 H 96 04/19/19 19:40 59 L 12 156/80 H 96 04/19/19 19:20 36.7 C 65 16 179/86 H 97 04/19/19 19:07 36.7 C 65 16 179/86 H 97 Date Exam was Performed: 04/19/19 Time Exam was Performed: 20:33 - My Orders Last 24 Hours: My Active Orders 04/19/19 20:14 EKG Documentation Completion [RC] ASDIRECTED EKG 12 Lead [EK] Routine - Assessment/Plan Last 24 Hours: My Active Orders 04/19/19 20:14 EKG Documentation Completion [RC] ASDIRECTED EKG 12 Lead [EK] Routine
[2019-04-19] MEDS ORDERED: Ketorolac 60 MG/2 ML SDV IM ONE (19:56)
[2019-04-19 20:33] VITALS: BP 159/91; PULSE 61
== END 2019-04-19 20:43 | disposition home or self-care (01) ==
LOC: JP.ED 18:54
DX: M12.9 Arthropathy, unspecified (principal); I10 Essential (primary) hypertension; K21.9 Gastro-esophageal reflux disease without esophagitis; E66.9 Obesity, unspecified; Z88.1 Allergy status to other antibiotic agents; Z88.8 Allergy status to other drugs, medicaments and biological substances; Z79.82 Long term (current) use of aspirin; Z98.890 Other specified postprocedural states; Z90.49 Acquired absence of other specified parts of digestive tract
CPT/HCPCS: 93005; 93010; 96372; 99283; J1885

== ENCOUNTER 2020-03-26 21:35 | Emergency (ER) | payer MEDICARE, BC ==
[2020-03-26 22:06] VITALS: BP 178/82; PULSE 85
--- NOTE | 2020-03-26 22:18 | EDM.PDOC ---
ED HPI GENERAL MEDICAL PROBLEM - General Chief Complaint: Upper Extremity Injury/Pain Stated Complaint: RIGHT THUMB SURGERY 2 WKS AGO [facility] Time Seen by Provider: 03/26/20 22:09 Source of Information: Reports: Patient History Limitations: Reports: No Limitations - History of Present Illness INITIAL COMMENTS - FREE TEXT/NARRATIVE: Patient presents for evaluation of increased pain in his right hand and forearm as well as intermittent fever and chills over the last week. His hand was injured helping a relative with cattle. He had surgery on what sounds like a fracture at the first MCP joint of some kind. His cast was painful and he was seen by orthopedics at [facility] in the clinic yesterday. The cast was removed and an ulnar gutter splint was placed along with elastic bandages. Since then, he is continued to have fever and chill feelings and the hand can just not get comfortable. He has had more swelling in the index through little fingers in the last 24 hours despite elevating the arm. The thumb itself and the hand area to him actually feels very good. The area was x-rayed yesterday and patient was told that things were doing okay. He is concerned that there may be infection in the hand or that he has some type of generalized infection given his fever and chill feelings over the last week. Onset: Gradual Duration: Week(s): (2) Location: Reports: Upper Extremity, Left Quality: Reports: Ache Severity: Mild Improves with: Reports: None Worsens with: Reports: Movement Context: Reports: Trauma right hand Pain Score (Numeric/FACES): 8 - Related Data Allergies Allergy/AdvReac Type Severity Reaction Status Date / Time erythromycin base Allergy Stomach Verified 03/26/20 21:53 [Erythromycin Base] Upset lisinopril AdvReac Cough Verified 03/26/20 21:53 reglan Allergy Hallucinati Uncoded 03/26/20 21:53 ons Home Meds: Home Meds Aspirin [Valery Chewable] 81 mg PO DAILY 07/31/13 [History] Pravastatin Sodium [Pravastatin (Pravachol)] 40 mg PO DAILY 07/31/13 [History] Metoprolol Succinate [Toprol XL 100mg] 100 mg PO DAILY 09/23/16 [History] Pantoprazole Sodium 40 mg PO DAILY PRN 09/23/16 [History] Sucralfate 1 gm PO QID 09/23/16 [History] Asfaxanthin 4 mg PO DAILY 04/19/19 [History] traMADol [Ultram] 50 mg PO Q6H PRN 03/26/20 [History] Past Medical History HEENT History: Reports: Impaired Vision Cardiovascular History: Reports: High Cholesterol, Hypertension Gastrointestinal History: Reports: Colon Polyp, GERD Genitourinary History: Reports: BPH Musculoskeletal History: Reports: Back Pain, Chronic, Fracture, Osteoarthritis Other Musculoskeletal History: bad knees Neurological History: Reports: Concussion Endocrine/Metabolic History: Reports: Obesity/BMI 30+ Dermatologic History: Reports: Other (See Below) Other Dermatologic History: blister like formation near incision L knee - Infectious Disease History Infectious Disease History: Reports: Chicken Pox - Past Surgical History HEENT Surgical History: Reports: Adenoidectomy, Tonsillectomy Cardiovascular Surgical History: Reports: Other (See Below) Other Cardiovascular Surgeries/Procedures: Angiogram GI Surgical History: Reports: Cholecystectomy, Colonoscopy, EGD, Hernia, Inguinal Male Surgical History: Reports: TURP-Transurethral Resection of Prostate Endocrine Surgical History: Reports: None Musculoskeletal Surgical History: Reports: Arthroscopic Knee, Knee Replacement, Shoulder Surgery, Other (See Below) Other Musculoskeletal Surgeries/Procedures:: x 2. new L knee replacement 09/19/16. right thumb ORIF Social & Family History - Tobacco Use Tobacco Use Status *Q: Never Tobacco User - Caffeine Use Caffeine Use: Reports: Coffee Caffeine Use Comment: not daily use - Recreational Drug Use Recreational Drug Use: No Review of Systems - Review of Systems Review Of Systems: See Below Constitutional: Reports: Chills, Fever Nose: Reports: No Symptoms Mouth/Throat: Reports: No Symptoms Respiratory: Reports: No Symptoms Cardiovascular: Reports: No Symptoms Musculoskeletal: Reports: Hand Pain (Left first metacarpal fracture with recent pin removal.) Skin: Reports: No Symptoms ED EXAM, GENERAL - Physical Exam Exam: See Below Free Text/Narrative:: This is a comfortable appearing male interviewed in room 7. Exam Limited By: No Limitations General Appearance: Alert, Mild Distress Head: Sinus Tenderness Peripheral Pulses: 3+: Radial (L), Radial (R) GI/Abdominal: Soft Extremities: Arm Pain (Left first metacarpal pain.), Other (Edema of index, middle, ring, little fingers.). No: Increased Warmth Neurological: Alert Psychiatric: Anxious Course - Vital Signs Last Recorded V/S: Last Vital Signs Temp 38.3 C H 03/26/20 22:05 Pulse 85 03/26/20 22:05 Resp 20 03/26/20 22:05 BP 178/82 H 03/26/20 22:05 Pulse Ox 95 03/26/20 22:05 - Orders/Labs/Meds Labs: Laboratory Tests 03/26/20 03/26/20 Range/Units 22:45 22:45 WBC 8.2 (4.5-11.0) K/uL RBC 4.43 (4.30-5.90) M/uL Hgb 13.2 D (12.0-15.0) g/dL Hct 38.1 L (40.0-54.0) % MCV 86 (80-98) fL MCH 30 (27-31) pg MCHC 35 (32-36) % Plt Count 229 (150-400) K/uL Neut % (Auto) 78 H (36-66) % Lymph % (Auto) 12 L (24-44) % [place] % (Auto) 10 H (2-6) % Eos % (Auto) 0 L (2-4) % Baso % (Auto) 0 (0-1) % Sodium 138 L (140-148) mmol/L Potassium 3.8 (3.6-5.2) mmol/L Chloride 102 (100-108) mmol/L Carbon Dioxide 27 (21-32) mmol/L Anion Gap 12.8 (5.0-14.0) mmol/L BUN 13 (7-18) mg/dL Creatinine 0.9 (0.8-1.3) mg/dL Est Cr Clr Drug Dosing 88.78 mL/min Estimated GFR (MDRD) > 60 (>60) Glucose 138 H (74-106) mg/dL Calcium 8.6 (8.5-10.1) mg/dL C-Reactive Protein 5.83 H (0.0-0.3) mg/dL - Re-Assessments/Exams Free Text/Narrative Re-Assessment/Exam: 03/26/20 22:44 The elastic bandages were removed from the thumb and hand. The soft roll wrap and the gutter splint was kept in place along the first MCP and thumb. I am going to let his hand rest in an elevated position with no wrap of any kind for the next 15 to 20 minutes. I will obtain blood to look at white blood cell count and CRP. 03/27/20 07:45 Lab work was unremarkable. His hand felt better after it was unwrapped. I reapplied the Michael bandages to his gutter splint. He will contact his orthopedist next week if symptoms have not improved. Departure - Departure Time of Disposition: 00:03 Disposition: Home, Self-Care 01 Clinical Impression: Aftercare for cast or splint check or change Fracture of metacarpal bone Qualifiers: Encounter type: subsequent encounter Metacarpal bone: first Fracture type: closed Metacarpal location: neck Fracture alignment: nondisplaced Laterality: right Fracture healing: with routine healing Qualified Code(s): S62.254D - N ondisplaced fracture of neck of first metacarpal bone, right hand, subsequent encounter for fracture with routine healing - Discharge Information Instructions: Metacarpal Fracture, Cast or Splint Care, Adult Referrals: Flakito Javed MD [Primary Care Provider] - Forms: ED Department Discharge Additional Instructions: Continue elevation of splinted area as discussed. Use ibuprofen 800 mg 3 times a day regularly for the next 5 days. Contact your surgeon on Sunday to update them. Return to ER if feeling worse. Sepsis Event Note (ED) - Evaluation Sepsis Screening Result: No Definite Risk - Focused Exam Vital Signs: Vital Signs Temp Pulse Resp BP Pulse Ox 03/26/20 22:05 38.3 C H 85 20 178/82 H 95
== END 2020-03-27 00:14 | disposition home or self-care (01) ==
LOC: JP.ED 21:35
DX: Z47.89 Encounter for other orthopedic aftercare (principal); S62.25 Fracture of neck of first metacarpal bone; I10 Essential (primary) hypertension; E78.00 Pure hypercholesterolemia, unspecified; K21.9 Gastro-esophageal reflux disease without esophagitis; E66.9 Obesity, unspecified; Z88.1 Allergy status to other antibiotic agents; Z88.8 Allergy status to other drugs, medicaments and biological substances; Z68.33 Body mass index [BMI] 33.0-33.9, adult; Z90.49 Acquired absence of other specified parts of digestive tract; Z79.82 Long term (current) use of aspirin; Z79.899 Other long term (current) drug therapy; X58.XXXD Exposure to other specified factors, subsequent encounter
CPT/HCPCS: 36415; 80048; 85025; 86140; 99282; 99283

== ENCOUNTER 2022-02-17 09:01 | Emergency (ER) | payer MEDICARE, BC ==
[2022-02-17 09:38] VITALS: BP 142/81; PULSE 67
[2022-02-17] MEDS ORDERED: Aspirin 81 MG Tab.Chew PO ONE (10:35)
[2022-02-17 11:17] LABS: TROPONIN I HIGH SENSITIVITY 6.2 pg/mL (<=60.3)
== END 2022-02-17 12:48 | disposition home or self-care (01) ==
LOC: JP.ED 09:01
DX: R07.89 Other chest pain (principal); E78.00 Pure hypercholesterolemia, unspecified; I10 Essential (primary) hypertension; E66.9 Obesity, unspecified; Z68.33 Body mass index [BMI] 33.0-33.9, adult; Z88.1 Allergy status to other antibiotic agents; Z88.8 Allergy status to other drugs, medicaments and biological substances; Z79.82 Long term (current) use of aspirin; Z79.899 Other long term (current) drug therapy
CPT/HCPCS: 36415; 71045; 80048; 84484; 85025; 99285; A9270

== ENCOUNTER 2022-04-21 06:55 | Day surgery (SDC) | payer MEDICARE, BC ==
[2022-04-21] MEDS ORDERED: Dextrose 5%-Lactated Ringers 1,000 ML IV SCH (07:30)
[2022-04-21] MEDS ORDERED: Propofol 200 MG/20 ML SDV ONE (08:15)
[2022-04-21] MEDS ORDERED: fentaNYL 100 MCG/2 ML SDV ONE (08:15)
[2022-04-21 10:50] VITALS: BP 143/92; PULSE 65
[2022-04-21 12:02] LABS: ESTIMATED GFR 92 mL/min (>60)
== END 2022-04-21 11:56 | disposition home or self-care (01) ==
LOC: JP.SDS 06:55
PROVIDERS: ATTEND Surgery
DX: K21.00 Gastro-esophageal reflux disease with esophagitis, without bleeding (principal); K29.60 Other gastritis without bleeding; K44.9 Diaphragmatic hernia without obstruction or gangrene; I10 Essential (primary) hypertension; E78.5 Hyperlipidemia, unspecified; K21.9 Gastro-esophageal reflux disease without esophagitis; I25.10 Atherosclerotic heart disease of native coronary artery without angina pectoris; Z79.899 Other long term (current) drug therapy; Z88.8 Allergy status to other drugs, medicaments and biological substances; Z88.1 Allergy status to other antibiotic agents
CPT/HCPCS: 36415; 43239; 80053; 83735; 83880; 84100; 85027; 87081; 88305; J2704; J3010; J7121

== ENCOUNTER 2022-04-24 07:13 | Day surgery (SDC) | payer MEDICARE, BC ==
[2022-04-24] MEDS ORDERED: Scopolamine 1.5 MG Transdermal Patch TOP SCH (08:15)
[2022-04-24] MEDS ORDERED: Acetaminophen 500 MG Tab PO ONE (08:15)
[2022-04-24] MEDS: Dextrose 5%-Lactated Ringers 1,000 ML IV SCH ×2 (08:34→19:20)
[2022-04-24] MEDS ORDERED: fentaNYL 250 MCG/5 ML SDV ONE ×2 (08:56→10:32)
[2022-04-24] MEDS ORDERED: Ondansetron 4 MG/2 ML SDV ONE (08:59)
[2022-04-24] MEDS ORDERED: Succinylcholine 200 MG/10 ML MDV ONE (08:59)
[2022-04-24] MEDS ORDERED: Propofol 200 MG/20 ML SDV ONE (08:59)
[2022-04-24] MEDS ORDERED: Dexamethasone 4 MG/ML SDV ONE (08:59)
[2022-04-24] MEDS ORDERED: Rocuronium 50 MG/5 ML Vial ONE (08:59)
[2022-04-24] MEDS ORDERED: Neostigmine Methylsulfate 1 MG/ML 5 ML Syringe ONE (08:59)
[2022-04-24] MEDS ORDERED: Glycopyrrolate 0.2 MG/ML 5 ML MDV ONE (08:59)
[2022-04-24] MEDS ORDERED: Albuterol/Ipratropium 3.0-0.5 MG/3 ML Neb Soln NEB ONE (09:00)
[2022-04-24] MEDS ORDERED: Ketamine 24 MG in Sodium Chloride 0.9% 19.76 ML IV SCH (09:30)
[2022-04-24] MEDS ORDERED: ceFAZolin 2 GM in Sodium Chloride 0.9% 50 ML IV ONE (09:30)
[2022-04-24] MEDS ORDERED: Ketamine 500 MG/5 ML MDV IV SCH (09:30)
[2022-04-24] MEDS ORDERED: Lactated Ringers 1,000 ML ONE (11:22)
[2022-04-24] MEDS ORDERED: HYDROmorphone 1 MG/ML Syringe IV PRN (12:48)
[2022-04-24] MEDS ORDERED: HYDROmorphone 0.5 MG/0.5 ML Syringe IVPUSH PRN (12:48)
[2022-04-24] MEDS ORDERED: hydrOXYzine HCL 100 MG/2 ML SDV IM PRN (12:49)
[2022-04-24] MEDS ORDERED: HYDROmorphone 2 MG Tab PO PRN (12:49)
[2022-04-24] MEDS ORDERED: Ondansetron 4 MG/2 ML SDV IVPUSH PRN (12:52)
[2022-04-24] MEDS ORDERED: Albuterol/Ipratropium 3.0-0.5 MG/3 ML Neb Soln INH PRN (12:54)
[2022-04-24] MEDS: Albuterol/Ipratropium 3.0-0.5 MG/3 ML Neb Soln INH SCH ×2 (14:21→21:27)
[2022-04-24] MEDS ORDERED: Pantoprazole 40 MG Vial IV SCH (14:30)
[2022-04-24] MEDS: VERIFY SCOP PATCH SCH (15:03)
[2022-04-24] MEDS: Acetaminophen 500 MG Tab PO SCH ×2 (15:52→21:20)
[2022-04-24] MEDS: ceFAZolin 2 GM in Sodium Chloride 0.9% 50 ML IV SCH (18:06)
[2022-04-24] MEDS ORDERED: Metoprolol Succinate 50 MG Tab.ER PO SCH (21:00)
[2022-04-24] MEDS ORDERED: Pravastatin 20 MG Tab PO SCH (21:00)
[2022-04-25 02:07] VITALS: BP 129/56; PULSE 72
[2022-04-25] MEDS: ceFAZolin 2 GM in Sodium Chloride 0.9% 50 ML IV SCH ×2 (02:08→09:54)
[2022-04-25] MEDS: Dextrose 5%-Lactated Ringers 1,000 ML IV SCH (05:57)
[2022-04-25] MEDS: Acetaminophen 500 MG Tab PO SCH ×2 (05:59→09:48)
[2022-04-25] MEDS: Albuterol/Ipratropium 3.0-0.5 MG/3 ML Neb Soln INH SCH ×2 (06:57→10:47)
[2022-04-25] MEDS ORDERED: Ondansetron 4 MG Tab.DIS PO PRN (07:48)
[2022-04-25] MEDS ORDERED: Dextrose 5%-Lactated Ringers 1,000 ML IV SCH (08:00)
[2022-04-25] MEDS ORDERED: Losartan 50 MG Tab PO SCH (09:00)
[2022-04-25] MEDS ORDERED: Aspirin 81 MG Tab.Chew PO SCH (09:00)
[2022-04-25] MEDS: VERIFY SCOP PATCH SCH (09:50)
== END 2022-04-25 13:47 | disposition home or self-care (01) ==
LOC: JP.SDSSCHI 07:13 → JP.SDS 07:13 → UNDOADMIN 07:13 → EDSTATUS 10:15 → JP.MS 11:45 → JP.SDSSCHI 11:45 → JP.MS 11:46 → UNDODISIN 04-25 13:30 → JP.SDS 04-25 13:47
PROVIDERS: ATTEND Surgery
DX: K21.9 Gastro-esophageal reflux disease without esophagitis (principal); K44.9 Diaphragmatic hernia without obstruction or gangrene; D17.39 Benign lipomatous neoplasm of skin and subcutaneous tissue of other sites; K29.70 Gastritis, unspecified, without bleeding; E78.2 Mixed hyperlipidemia; E66.9 Obesity, unspecified; I10 Essential (primary) hypertension; J45.909 Unspecified asthma, uncomplicated; Z68.32 Body mass index [BMI] 32.0-32.9, adult; Z79.899 Other long term (current) drug therapy; Z98.890 Other specified postprocedural states; Z88.8 Allergy status to other drugs, medicaments and biological substances; Z88.1 Allergy status to other antibiotic agents
CPT/HCPCS: 88304; 94640; 94762; A9270-GY; C1713; C1781; C9113; J0171; J0330; J0690; J1100; J2405; J2704; J2710; J2795; J3010; J3490; J7120; J7121; J7620

== ENCOUNTER 2023-04-13 06:45 | Day surgery (SDC) | payer MEDICARE, BC ==
[2023-04-13] MEDS ORDERED: fentaNYL 50 MCG/ML SDV ONE (07:08)
[2023-04-13] MEDS ORDERED: Propofol 200 MG/20 ML SDV ONE (07:08)
[2023-04-13] MEDS ORDERED: Lactated Ringers 1,000 ML IV SCH (07:30)
[2023-04-13 09:18] VITALS: BP 156/86; PULSE 61
== END 2023-04-13 09:25 | disposition home or self-care (01) ==
LOC: JP.SDS 06:45
PROVIDERS: ATTEND Student in an Organized Health Care Education/Training Program
DX: K29.50 Unspecified chronic gastritis without bleeding (principal); K22.70 Barrett's esophagus without dysplasia; K31.A0 Gastric intestinal metaplasia, unspecified; K22.89 Other specified disease of esophagus; K21.9 Gastro-esophageal reflux disease without esophagitis
CPT/HCPCS: 43239; J2704; J3010; J7120

== ENCOUNTER 2023-08-18 15:06 | Emergency (ER) | payer MEDICARE, BC ==
[2023-08-18] MEDS ORDERED: Naloxone 0.4 MG/ML SDV IVPUSH PRN (16:05)
[2023-08-18 16:22] LABS: BASOPHILS ABSOLUTE AUTO 0.01 K/uL (0.00-0.10); BASOPHILS PERCENT AUTO 0.1 % (0.1-1.3); EOSINOPHILS ABSOLUTE AUTO 0.04 K/uL (0.00-0.40); EOSINOPHILS PERCENT AUTO 0.5 % (0.0-5.4); HEMATOCRIT 37.6 % (38.4-49.7); HEMOGLOBIN 13.8 g/dL (12.9-16.9); IMMATURE GRAN ABSOLUTE AUTO 0.01 K/uL (0.00-0.23); IMMATURE GRAN PERCENT AUTO 0.1 % (0.0-0.7); LYMPHOCYTES ABSOLUTE AUTO 0.82 K/uL (0.8-3.3); LYMPHOCYTES PERCENT AUTO 10.2 % (11.4-47.7); MEAN CORPUSCULAR HEMOGLOBIN 30.7 pg (31.6-35.5); MEAN CORPUSCULAR HGB CONC 36.7 g/dL (31.6-35.5); MEAN CORPUSCULAR VOLUME 83.7 fL (81.4-99.0); MONOCYTES ABSOLUTE AUTO 0.43 K/uL (0.20-0.90); MONOCYTES PERCENT AUTO 5.3 % (3.3-12.6); NEUTROPHILS ABSOLUTE AUTO 6.76 K/uL (1.0-7.6); NEUTROPHILS PERCENT AUTO 83.8 % (40.0-78.1); PLATELET COUNT,PLT 153 K/uL (130-375); RED BLOOD CELL COUNT 4.49 M/uL (4.14-5.76); WHITE BLOOD CELL COUNT,WBC 8.1 K/uL (3.2-11.0)
[2023-08-18] MEDS: Sodium Chloride 0.9% 1,000 ML IV SCH (16:24)
[2023-08-18] MEDS: HYDROmorphone 0.5 MG/0.5 ML Syringe IVPUSH ONE (16:24)
[2023-08-18] MEDS: Ondansetron 4 MG Tab.DIS PO ONE (16:24)
[2023-08-18 16:36] LABS: CALCIUM 8.9 mg/dL (8.5-10.1); EST CRCL DRUG DOSING (CG) 76.57 mL/min; POTASSIUM,K 3.5 mmol/L (3.6-5.2)
[2023-08-18 16:37] LABS: ANION GAP 12.5 mmol/L (5.0-14.0)
[2023-08-18] MEDS: Sodium Chloride 0.9% 10 ML Syringe FLUSH ONE (18:00)
[2023-08-18] MEDS: Sodium Chloride 0.9% 100 ML IV ONE (18:00)
[2023-08-18] MEDS: Iopamidol 612 MG/ML 100 ML Bottle IV ONE (18:00)
[2023-08-18 19:20] VITALS: BP 137/69; PULSE 57
== END 2023-08-18 19:37 | disposition home or self-care (01) ==
LOC: JP.ED 15:06
DX: S39.011A Strain of muscle, fascia and tendon of abdomen, initial encounter (principal); I10 Essential (primary) hypertension; K21.9 Gastro-esophageal reflux disease without esophagitis; E78.00 Pure hypercholesterolemia, unspecified; E66.9 Obesity, unspecified; Z88.1 Allergy status to other antibiotic agents; Z88.8 Allergy status to other drugs, medicaments and biological substances; Z79.899 Other long term (current) drug therapy; Z86.16 Personal history of COVID-19; Z90.49 Acquired absence of other specified parts of digestive tract; Z68.30 Body mass index [BMI] 30.0-30.9, adult; X58.XXXA Exposure to other specified factors, initial encounter
CPT/HCPCS: 36415; 74177; 80048; 85025; 96374; 99284; J1170; J3490; Q0162; Q9967; J7030